=== PATIENT | male | born 1965 | race Two or more races ===

== ENCOUNTER 2019-11-14 09:12 | Outpatient (CLI) | payer OTHER ==
[2019-11-14] MEDS ORDERED: CLONAZEPAM0.5 MG PO (13:00)
[2019-11-14] MEDS ORDERED: CYMBALTA30 MG PO (13:00)
[2019-11-14] MEDS ORDERED: GABAPENTIN800 M1 PO (13:01)
== END 2019-11-14 09:25 | disposition home or self-care (01) ==
LOC: RAD 09:12
DX: R05 Cough (principal)

== ENCOUNTER 2019-11-21 06:25 | Day surgery (SDC) | payer OTHER ==
[~2019-11-21 06:25] MED LIST: CLONAZEPAM0.5 MG PO; CYMBALTA30 MG PO; GABAPENTIN800 M1 PO
== END 2019-11-21 22:11 | disposition home or self-care (01) ==
LOC: CIR.AMB 06:25 → ADM 08:15 → CIR.AMB 08:15
DX: H72.02 Central perforation of tympanic membrane, left ear (principal)

== ENCOUNTER 2023-06-09 08:29 | Outpatient (CLI) | payer OTHER | END 2023-06-09 08:31 | disposition home or self-care (01) | LOC: SONOGRAMA 08:29 | PROVIDERS: ATTEND Pathology Anatomic Pathology & Clinical Pathology | DX: D34 Benign neoplasm of thyroid gland (principal); E04.9 Nontoxic goiter, unspecified ==

== ENCOUNTER 2025-06-27 13:45 | Outpatient (CLI) | payer OTHER | END 2025-06-27 13:47 | disposition home or self-care (01) | LOC: SONOGRAMA 13:45 | PROVIDERS: ATTEND Pathology Anatomic Pathology & Clinical Pathology | DX: E04.2 Nontoxic multinodular goiter (principal) ==